=== PATIENT | female | born 1965 | race African-American/Black ===

== ENCOUNTER 2024-09-13 14:01 | Emergency (ER) | payer MEDICAID ==
[~2024-09-13] VITALS: Ht 154.9 cm; Wt 63.0 kg
[2024-09-13 14:10] VITALS: O2SAT 99
[2024-09-13 14:11] VITALS: BP 124/68; PULSE 79; RESP 18; TEMP 36.7; O2SAT 100
[2024-09-13] MEDS: IBUPROFEN 600MG TABLET PO ONE (15:33)
[2024-09-13] MEDS: LIDOCAINE 5% PATCH TOP SCH (15:34)
[2024-09-13] MEDS ORDERED: LIDO700A30 TP (15:36)
[2024-09-13] MEDS ORDERED: IBUP-2029 MT (15:36)
== END 2024-09-13 16:02 | disposition home or self-care (01) ==
LOC: ER 14:01
DX: M54.9 Dorsalgia, unspecified (principal); I10 Essential (primary) hypertension; F41.9 Anxiety disorder, unspecified; Z79.899 Other long term (current) drug therapy; Z98.890 Other specified postprocedural states; W19.XXXA Unspecified fall, initial encounter; Y93.89 Activity, other specified; Y92.89 Other specified places as the place of occurrence of the external cause; Y99.8 Other external cause status
CPT/HCPCS: 71045; 99283